=== PATIENT | male | born 1985 | race Two or more races ===

== ENCOUNTER 2018-06-17 17:43 | Emergency (ER) | payer OTHER ==
[~2018-06-17] VITALS: Ht 167.6 cm; Wt 77.1 kg
[2018-06-17 18:44] VITALS: BP 143/73
== END 2018-06-17 23:12 ==
LOC: EEVIPCON 17:53 → ER 17:53
DX: Z00.00 Encounter for general adult medical examination without abnormal findings (principal)
CPT/HCPCS: 74018; 74176